=== PATIENT | male | born 1995 | race Caucasian/White ===

== ENCOUNTER 2018-06-14 08:16 | Emergency (ER) | payer BC ==
[~2018-06-14] VITALS: Ht 180.3 cm; Wt 68.0 kg
[2018-06-14 08:29] VITALS: BP_SYST 138
--- NOTE | 2018-06-14 08:33 | NUR ---
Ambulatory to bed 6
--- NOTE | 2018-06-14 08:40 | NUR ---
ER at bedside examining patient.
[2018-06-14] MEDS ORDERED: LIDOCAINE 1% 10 MG/ML, 20 ML MDV INJ ONE (08:45)
--- NOTE | 2018-06-14 08:50 | NUR ---
Patient has a 2 cm laceration to L index finger. Dr. Law applied 5 sutures using sterile technique. Edges well approximated. Site cleansed with NS. Dressing of non adhesive dressing and finger splint applied to site. No bleeding noted. Pt tolerated well.
--- NOTE | 2018-06-14 09:19 | NUR ---
Patient given written and verbal discharge instructions and verbalizes understanding. ER MD discussed with patient the results and treatment provided. Patient in stable condition. ID arm band removed. Rx of tylenol given. Patient educated on pain management and to follow up with PMD. Pain Scale 3. Opportunity for questions provided and answered.
[2018-06-14 09:20] VITALS: BP_SYST 138
== END 2018-06-14 09:19 | disposition home or self-care (01) ==
LOC: SED 08:16
DX: S61.211A Laceration without foreign body of left index finger without damage to nail, initial encounter (principal); W26.8XXA Contact with other sharp object(s), not elsewhere classified, initial encounter; Y93.H2 Activity, gardening and landscaping; Y92.89 Other specified places as the place of occurrence of the external cause; Y99.8 Other external cause status
CPT/HCPCS: 12002; 99283; J2001